=== PATIENT | female | born 1960 | race Caucasian/White ===

== ENCOUNTER 2019-09-28 01:53 | Emergency (ER) | payer BC ==
[~2019-09-28] VITALS: Ht 157.5 cm; Wt 120.0 kg
--- NOTE | 2019-09-28 04:09 | REPVR ---
PROCEDURE INFORMATION: Exam: US Duplex Right Lower Extremity Veins, Limited Exam date and time: 09/28/2019 3:51 AM Age: 58 years old Clinical indication: Edema, localized; Lower extremity, right; Additional info: R/O dvt TECHNIQUE: Imaging protocol: Real-time Duplex ultrasound of the Right Lower Extremity with 2-D teague scale, color Doppler flow and spectral waveform analysis with image documentation. Limited exam was focused on the right lower extremity veins. COMPARISON: No relevant prior studies available. FINDINGS: Right deep veins: Unremarkable. The common femoral, femoral, proximal profunda femoral and popliteal veins are patent without thrombus. Normal Doppler waveforms. Normal compressibility and/or augmentation response. Right superficial veins: Unremarkable. Saphenofemoral junction is patent without thrombus. Soft tissues: Fluid collection at the lateral aspect of the right knee in an area of redness and bruise measuring 4.3 x 1.2 x 4.5 cm which may reflect residua of old hematoma or seroma. IMPRESSION: 1. Fluid collection at the lateral aspect of the right knee in an area of redness and bruise measuring 4.3 x 1.2 x 4.5 cm which may reflect old hematoma or seroma. Tenosynovitis is not excluded. 2. Negative right lower extremity venous duplex exam without evidence of deep venous thrombosis. Electronically signed by: Eric Landin On 09/28/2019 04:09:12 AM
[2019-09-28] MEDS ORDERED: KEFL500C17 PO (04:43)
[2019-09-28] MEDS ORDERED: CEPHALEXIN 500 MG CAP PO ONE (04:45)
[2019-09-28 05:16] VITALS: BP 138/86
== END 2019-09-28 05:18 | disposition home or self-care (01) ==
LOC: M ED 01:53
DX: L03.115 Cellulitis of right lower limb (principal); Z88.0 Allergy status to penicillin; Z88.5 Allergy status to narcotic agent